=== PATIENT | female | born 1930 | race Caucasian/White ===

== ENCOUNTER 2020-05-23 11:37 | Inpatient (IN) | payer MEDICARE ==
[~2020-05-23] VITALS: Ht 162.6 cm; Wt 71.7 kg
[2020-05-23 12:07] LABS: BASOPHILS % 0.3 % (0.0-1.0); EOSINOPHILS % 0.5 % (0.0-6.0); HEMATOCRIT 34.5 % (34.2-44.1); HEMOGLOBIN 11.2 g/dL (12.0-16.0); LYMPHOCYTES # (AUTO) 0.7 (1.0-3.2); LYMPHOCYTES % 12.1 % (18.0-39.1); MEAN CORPUSCULAR HEMOGLOBIN 25.5 pg (28-32); MEAN CORPUSCULAR HGB CONC 32.5 g/dL (31-35); MEAN CORPUSCULAR VOLUME 78.4 fL (81-99); MONOCYTES # (AUTO) 0.6 (0.2-0.8); MONOCYTES % 10.1 % (4.4-11.3); NEUTROPHILS # (AUTO) 4.5 (2.1-6.9); NEUTROPHILS % 76.5 % (38.7-80.0); PLATELET COUNT 177 x10e3/uL (140-360); RED CELL DISTRIBUTION WIDTH 15.9 % (11.7-14.4)
[2020-05-23 12:17] LABS: INR 1.67; PROTHROMBIN TIME 20.5 seconds (11.9-14.5)
[2020-05-23 12:18] LABS: PARTIAL THROMBOPLASTIN TIME 39.6 seconds (23.8-35.5)
[2020-05-23 12:26] LABS: ALANINE AMINOTRANSFERASE 22 IU/L (0-55); ALBUMIN 3.6 g/dL (3.5-5.0); ALBUMIN/GLOBULIN RATIO 1.2 (0.8-2.0); ALKALINE PHOSPHATASE 77 IU/L (40-150); ANION GAP 12.7 mmol/L (8-16); BLOOD UREA NITROGEN 10 mg/dL (7-26); BUN/CREATININE RATIO 13 (6-25); CALCIUM 9.2 mg/dL (8.4-10.2); CARBON DIOXIDE 28 mmol/L (22-29); CHLORIDE 88 mmol/L (98-107); CREATINE KINASE 69 IU/L (29-168); CREATININE, SERUM 0.78 mg/dL (0.57-1.11); EST GLOMERULAR FILTRATION RATE > 60 ML/MIN (60-); GLUCOSE 121 mg/dL (74-118); MAGNESIUM 1.3 MG/DL (1.3-2.1); POTASSIUM 3.7 mmol/L (3.5-5.1); SODIUM 125 mmol/L (136-145)
[2020-05-23 12:56] LABS: COLOR,URINE YELLOW (YELLOW)
[2020-05-23 12:57] LABS: BILIRUBIN,URINE NEGATIVE (NEGATIVE); CLARITY,URINE CLEAR (CLEAR); KETONES,URINE NEGATIVE (NEGATIVE); LEUKOCYTE ESTERASE ,URINE NEGATIVE (NEGATIVE); NITRITE,URINE NEGATIVE (NEGATIVE); PROTEIN,URINE DIPSTICK NEGATIVE (NEGATIVE); URINE UROBILINOGEN 0.2 mg/dL (0.2 - 1)
--- NOTE | 2020-05-23 13:10 | NUR ---
XRAY PORTABLE TO ROOM NOW.
[2020-05-23 13:13] LABS: BACTERIA,URINE FEW /HPF; EPITHELIAL CELLS,URINE FEW /LPF; RBC,URINE 0-5 /HPF (0-5); WBC,URINE (MAN) 0-5 /HPF (0-5)
--- NOTE | 2020-05-23 13:41 | NUR ---
2ND COVID SWAB DONE TO R/O TO SEE IF WE CAN ADMIT PT HERE OR NEED TO TRANSFER. SPOKE TO MICHELE Gay STATES HE DOES UNDERSTAND THIS NEEDS TO BE DONE A 45 MIN RAPID IN HOUSE
[2020-05-23] MEDS ORDERED: FLUZONE (13:45)
[2020-05-23] MEDS ORDERED: SERTRALINE HCL25 MG PO (13:45)
[2020-05-23] MEDS ORDERED: ELIQUIS PO (13:45)
[2020-05-23] MEDS ORDERED: LISINOPRIL PO (13:45)
[2020-05-23] MEDS ORDERED: HYDRALAZINE PO (13:45)
[2020-05-23] MEDS ORDERED: TORSEMIDE10 MG PO (13:45)
[2020-05-23] MEDS ORDERED: ALENDRONATE PO (13:45)
[2020-05-23] MEDS ORDERED: POTASSIUM CHLO20 ME1 PO (13:45)
[2020-05-23] MEDS ORDERED: FUROSEMIDE INJ 10 MG/ML 4 ML VIAL IV NR (13:45)
[2020-05-23] MEDS ORDERED: FUROSEMIDE INJ 10 MG/ML 2 ML VIAL ONE (13:45)
[2020-05-23] MEDS ORDERED: CARVEDILOL PO (13:45)
--- NOTE | 2020-05-23 13:47 | NUR ---
vimal swab handed to edgar in lab.
--- NOTE | 2020-05-23 14:13 | Diagnostic Imaging Report ---
EXAMINATION: CHEST SINGLE (PORTABLE) INDICATION: Shortness of breath suspicious for congestive heart failure COMPARISON: None FINDINGS: TUBES and LINES: AICD is intact. LUNGS: Normal lung volumes. There is diffuse interstitial prominence throughout both lungs. There is also hazy opacification the bilateral lung bases, left more to right. PLEURA: There is probable small trace pleural effusion. No pneumothorax. Vertically oriented lucencies projecting over the right hemithorax likely reflect skin folds. HEART AND MEDIASTINUM: The cardiomediastinal silhouette is enlarged. There are atherosclerotic calcifications within the aorta. BONES AND SOFT TISSUES: Degenerative changes in the spine and shoulders. Soft tissues are unremarkable. UPPER ABDOMEN: No free air under the diaphragm. IMPRESSION: 1. Cardiomegaly with interstitial pulmonary edema. 2. Hazy opacification the bilateral lung bases which most likely represent atelectasis and/or developing pneumonia in the proper clinical context. 3. Probable trace left pleural effusion. Signed by: Reynaldo Tai MD on 05/23/2020 2:09 PM
--- NOTE | 2020-05-23 14:40 | Emergency Department Note ---
History of Present Illnes History of Present Illness Chief Complaint: Respiratory History of Present Illness This is a 89 year old female X 6 DAYS INCREASING SHORTNESS OF BREATH, TAMAYO, PND, ORTHOPNEA. PATIENT WITH LABORED BREATHING AND WHEEZING, PITTING EDEMA. O2 SAT 95%. 5 DAYS AGO STARTED ON TORSEMIDE. NO COUGH Historian: Patient Arrival Mode: Car Additional Treatment ANTITANK ASSAULT GUNNER: NONE User Experience Lead Required: No Onset (how long ago): day(s) (6) Location: LUNGS Quality: SOB Radiation: Reports non-radiation Severity: severe Onset quality: gradual Timing of current episode: constant Progression: worsening Chronicity: recurrent Context: Denies recent illness Relieving factors: none Exacerbating factors: none Associated symptoms: Reports denies other symptoms Past Medical/Family History Physician Review I have reviewed the patient's past medical and family history. Any updates have been documented here. Past Medical History Recent Fever: No Clinical Suspicion of Infectio: No New/Unexplained Change in Ment: No Past Medical History: Hypertension, CHF, Hyperlipedemia Past Surgical History: Hysterectomy, Pacer/AICD Social History Smoking Cessation: Never Smoker Counseling Performed: No Alcohol Use: None Any Illegal Drug Use: No TB Exposure/Symptoms: No Physically hurt or threatened: No Family History Family history of heart diseas: No Other Any Pre-Existing Lines (PICC,: No Review of Systems Review of Systems Constitutional: Reports no symptoms EENTM: Reports no symptoms Cardiovascular: Reports as per HPI, Reports edema; Denies chest pain Respiratory: Reports dyspnea, Reports dyspnea on exertion Gastrointestinal: Reports no symptoms Genitourinary: Reports no symptoms Musculoskeletal: Reports no symptoms Integumentary: Reports no symptoms Neurological: Reports no symptoms Psychological: Reports no symptoms Endocrine: Reports no symptoms Hematological/Lymphatic: Reports no symptoms Physical Exam Related Data Allergies: Uncoded Allergies: SHINGLES SHOT (Allergy, Severe, ARM SWELLING, 05/23/20) Triage Vital Signs Vital Signs Date Time Temp Pulse Resp B/P (MAP) Pulse Ox O2 Delivery O2 Flow Rate FiO2 05/23/20 11:49 97.9 108 24 146/85 95 Room Air 05/23/20 12:01 2.0 Vital signs reviewed: Yes Physical Exam CONSTITUTIONAL Constitutional: Present well-developed, Present well-nourished HENT HENT: Present normocephalic, Present atraumatic, Present oropharynx clear/moist, Present nose normal HENT L/R: Present left ext ear normal, Present right ext ear normal EYES Eyes: Reports PERRL, Reports conjunctivae normal NECK Neck: Present ROM normal PULMONARY Pulmonary: Present effort normal, Present breath sounds normal CARDIOVASCULAR Cardiovascular: Present regular rhythm, Present irregular rhythm, Present heart sounds normal, Present capillary refill normal, Present normal rate, Present murmur, Present other (BILATERAL LE EDEMA 4+ TO THIGHS, BILAT FOREARM EDEMA) GASTROINTESTINAL Abdominal: Present soft, Present nontender, Present bowel sounds normal GENITOURINARY Genitourinary: Present exam deferred SKIN Skin: Present warm, Present dry MUSCULOSKELETAL Musculoskeletal: Present ROM normal NEUROLOGICAL Neurological: Present alert, Present oriented x 3, Present no gross motor or sensory deficits PSYCHOLOGICAL Psychological: Present mood/affect normal, Present judgement normal Results Laboratory Result Diagram: 05/23/20 1109 05/23/20 1109 Laboratory Laboratory Tests Test 05/23/20 13:20 05/23/20 12:20 05/23/20 11:09 Urine Color Yellow (YELLOW) Urine Clarity Clear (CLEAR) Urine pH 7 (5 - 7) Urine Specific [place] 1.025 (1.010-1.025) Urine Protein Negative (NEGATIVE) Urine Glucose (UA) Negative (NEGATIVE) Urine Ketones Negative (NEGATIVE) Urine Blood Trace (NEGATIVE) Urine Nitrite Negative (NEGATIVE) Urine Bilirubin Negative (NEGATIVE) Urine Urobilinogen 0.2 mg/dL (0.2 - 1) Urine Leukocyte Esterase Negative (NEGATIVE) Urine RBC 0-5 /HPF (0-5) Urine WBC 0-5 /HPF (0-5) Urine Epithelial Cells Few /LPF (NONE) Urine Bacteria Few /HPF (NONE) White Blood Count 5.87 x10e3/uL (4.8-10.8) Red Blood Count 4.40 x10e6/uL (3.6-5.1) Hemoglobin 11.2 g/dL (12.0-16.0) Hematocrit 34.5 % (34.2-44.1) Mean Corpuscular Volume 78.4 fL (81-99) Mean Corpuscular Hemoglobin 25.5 pg (28-32) Mean Corpuscular Hemoglobin Concent 32.5 g/dL (31-35) Red Cell Distribution Width 15.9 % (11.7-14.4) Platelet Count 177 x10e3/uL (140-360) Neutrophils (%) (Auto) 76.5 % (38.7-80.0) Lymphocytes (%) (Auto) 12.1 % (18.0-39.1) Monocytes (%) (Auto) 10.1 % (4.4-11.3) Eosinophils (%) (Auto) 0.5 % (0.0-6.0) Basophils (%) (Auto) 0.3 % (0.0-1.0) Neutrophils # (Auto) 4.5 (2.1-6.9) Lymphocytes # (Auto) 0.7 (1.0-3.2) Monocytes # (Auto) 0.6 (0.2-0.8) Eosinophils # (Auto) 0.0 (0.0-0.4) Basophils # (Auto) 0.0 (0.0-0.1) Absolute Immature Granulocyte (auto 0.03 x10e3/uL (0-0.1) Prothrombin Time 20.5 seconds (11.9-14.5) Prothromb Time International Ratio 1.67 Activated Partial Thromboplast Time 39.6 seconds (23.8-35.5) Sodium Level 125 mmol/L (136-145) Potassium Level 3.7 mmol/L (3.5-5.1) Chloride Level 88 mmol/L (98-107) Carbon Dioxide Level 28 mmol/L (22-29) Anion Gap 12.7 mmol/L (8-16) Blood Urea Nitrogen 10 mg/dL (7-26) Creatinine 0.78 mg/dL (0.57-1.11) Estimat Glomerular Filtration Rate > 60 ML/MIN (60-) BUN/Creatinine Ratio 13 (6-25) Glucose Level 121 mg/dL (74-118) Calcium Level 9.2 mg/dL (8.4-10.2) Magnesium Level 1.3 MG/DL (1.3-2.1) Total Bilirubin 1.2 mg/dL (0.2-1.2) Aspartate Amino Transf (AST/SGOT) 37 IU/L (5-34) Alanine Aminotransferase (ALT/SGPT) 22 IU/L (0-55) Alkaline Phosphatase 77 IU/L (40-150) Creatine Kinase 69 IU/L (29-168) Creatine Kinase MB 3.20 ng/mL (0-5.0) Troponin I 0.034 ng/mL (0-0.300) B-Type Natriuretic Peptide 751.8 pg/mL (0-100) Total Protein 6.6 g/dL (6.5-8.1) Albumin 3.6 g/dL (3.5-5.0) Globulin 3.0 g/dL (2.3-3.5) Albumin/Globulin Ratio 1.2 (0.8-2.0) Lab results reviewed: Yes Imaging Imaging results reviewed: Yes Procedures 12 Lead ECG Interpretation ECG Interpretation : ECG: ECG 1 User Experience Lead: Interpreted by ED physician Date: May 23, 2020 Time: 12:10 Rhythm: atrial fibrillation Ectopy: infrequent PVC's Rate: normal BPM: 71 QRS axis: right Conduction: right bundle branch block ST segments normal: Yes T wave inversion: III, aVR, V1, V2, V3, V4, V5 T waves flattening: V6 Clinical Impression: abnormal ECG Assessment & Plan Medical Decision Making MDM SOB, CLINICALLY LOOKS LIKE CHF - CHECK CBC, CHEM, ECG, CARDIACS, BNP, CXR, BLOOD CX'S, COVID SWAB - EVAL FOR CHF, RENAL INSUFF, PNEUMONIA, COVID19, ELECTROLYTE ABNL Reassessment Reassessment LASIX GIVEN IN ER FOR CHF EXAC, ADMIT TO DR BARNHART ([facility] PT) Assessment & Plan Final Impression: (1) CHF exacerbation (2) Hyponatremia Depart Disposition: ADMITTED Last Vital Signs Date Time Temp Pulse Resp B/P (MAP) Pulse Ox O2 Delivery O2 Flow Rate FiO2 05/23/20 13:10 76 26 172/80 97 Nasal Cannula 2.0 05/23/20 11:49 97.9 Home Meds Reported Medications [Alendronate] No Conflict Check 05/23/20 [Fluzone] No Conflict Check 05/23/20 [Lisinopril] No Conflict Check 05/23/20 [Hydralazine] No Conflict Check 05/23/20 [Carvedilol] No Conflict Check 05/23/20 Potassium Chloride (POTASSIUM CHLORIDE) 20 Meq Tab.er.prt 05/23/20 Sertraline Hcl (SERTRALINE HCL) 25 Mg Tablet 05/23/20 [Eliquis] No Conflict Check 05/23/20 Torsemide (TORSEMIDE) 10 Mg Tablet 05/23/20 ALLYSON RUBI MD May 23, 2020 14:40
[2020-05-23] MEDS ORDERED: ATORVASTATIN CA20 MG PO (15:17)
[2020-05-23] MEDS ORDERED: CLONIDINE HCL0.1 MG PO (15:17)
[2020-05-23 16:19] VITALS: BP 156/85
[2020-05-23 16:25] VITALS: BP 156/85
[2020-05-23 16:35] VITALS: BP 156/85
[2020-05-23 16:36] VITALS: BP 156/85
[2020-05-23] MEDS: FUROSEMIDE INJ 10 MG/ML 4 ML VIAL IV SCH (17:00)
[2020-05-23] MEDS: CLONIDINE HCL 0.1 MG TAB PO SCH (17:50)
[2020-05-23 19:18] LABS: CREATINE KINASE MB 3.2 ng/mL (0-5.0)
[2020-05-23] MEDS ORDERED: ALBUTEROL/IPRATROPIUM 3 ML NEB NEB PRN (19:45)
[2020-05-23 20:12] VITALS: BP 126/53
--- NOTE | 2020-05-23 20:24 | History and Physical ---
PRIMARY CARE PHYSICIAN: Dr. Lynch at [facility]. CHIEF COMPLAINT: Shortness of breath and dry cough with lower extremity edema. HISTORY OF PRESENT ILLNESS: This is an 89-year-old female with past medical history of high blood pressure, high cholesterol, systolic CHF, and atrial fibrillation, presented to the ER with complaints of shortness of breath and dry cough. She reports the symptoms initially started six weeks ago. She went and saw her PCP who increased her furosemide five days ago, but her bilateral lower extremity edema and shortness of breath continued to worsen. She denies any fever, chills, chest pain, palpitations, abdominal pain, dysuria, or hematuria. She reports has difficulty with her ADLs and has not had good sleep in a few days. In the ER, she had chest x-ray showed cardiomegaly with interstitial pulmonary edema, hazy opacifications at the bilateral lung bases, which most likely represent atelectasis or developing of pneumonia. She was given IV Lasix and will be admitted for further management of her CHF. PAST MEDICAL HISTORY: 1. Hypertension. 2. High cholesterol. 3. Systolic CHF. 4. Paroxysmal atrial fibrillation. PAST SURGICAL HISTORY: 1. Hysterectomy. 2. Tonsillectomy. 3. Pacemaker placement. FAMILY MEDICAL HISTORY: She reports mother had cancer and father had Parkinson disease. SOCIAL HISTORY: She denies any tobacco, alcohol, or illicit drug use. She lives with her daughter in the [facility]. ALLERGIES: TO SHINGLES SHOT. REVIEW OF SYSTEMS: 10 systems reviewed and negative except as reported in HPI. PHYSICAL EXAMINATION: VITAL SIGNS: Temperature 97.9, pulse is 57, respirations 22, blood pressure 156/85, pulse ox is 97% on 2 L of nasal cannula. GENERAL: No acute distress. HEENT: Normocephalic, atraumatic. NECK: Supple. LUNGS: With decreased breath sounds. CARDIOVASCULAR: Irregular rate and rhythm. GI: Soft and nontender. NEUROLOGIC: Alert, awake, and oriented x3. MUSCULOSKELETAL: Moves all extremities. +2 to 3 edema in the lower extremities. SKIN: Dry. PSYCH: Calm. : Gaspar in place for strict I's and O's. LABORATORY DATA: WBC 5.87, hemoglobin 11.2, hematocrit 34.5, and platelet 177. Sodium 125, potassium 3.7, BUN 10, creatinine 0.78, estimated GFR is greater than 60, glucose 121, calcium 9.2, magnesium 1.3, AST 37, and ALT 22. Troponin I 0.004. BNP 751.8. Albumin 3.6, globulin 3.0, PT 20.5, INR 1.67, and APTT 39.6. UA is negative. Coronavirus PCR is nondetected. Chest x-ray shows cardiomegaly with interstitial pulmonary edema. Hazy opacification likely due to atelectasis or developing of pneumonia. Probable trace pleural effusion. IMPRESSION: 1. Acute systolic congestive heart failure with exacerbation. BNP is 751. Chest x-ray noted. She is with dyspnea and bilateral lower extremity edema. We will continue with IV Lasix. Gaspar is in place for accurate I and O. We will check echo and resume home medications. 2. Hypertension. We will continue on clonidine, lisinopril, and Coreg. 3. High cholesterol. Continue statin. 4. Atrial fibrillation. Rate is controlled on beta blockers. We will continue Eliquis for cerebrovascular accident prophylaxis. 5. Hyponatremia. We will give sodium chloride tabs and recheck labs in a.m. She has no dizziness or change in mental status. 6. Gastrointestinal and deep venous thrombosis prophylaxis. PPI and on Eliquis. PLAN: To continue aggressive diuretics with IV Lasix. We will give nebs and O2 via nasal cannula. We will check echo and labs in a.m. Dictated by WANDA Chand Jacques Garcia MD MY/MODL /[id number]
[2020-05-23] MEDS: ATORVASTATIN 20 MG TAB PO SCH (20:56)
[2020-05-23] MEDS: CEFTRIAXONE SOD 1 GM/NS 50 ML 50 ML IV SCH (20:56)
[2020-05-23] MEDS: SODIUM CHLORIDE 1 GM TAB PO SCH (21:03)
[2020-05-23] MEDS ORDERED: SODIUM CHLORIDE 0.9% 250ML 250 ML ONE (21:16)
[2020-05-23 21:45] VITALS: BP 126/53
[2020-05-24] VITALS (8 sets, daily range): BP systolic 105–159; BP diastolic 50–71
[2020-05-24 07:02] LABS: BASOPHILS % 0.2 % (0.0-1.0); EOSINOPHILS % 0.4 % (0.0-6.0); HEMATOCRIT 30.7 % (34.2-44.1); LYMPHOCYTES # (AUTO) 0.8 (1.0-3.2); LYMPHOCYTES % 14.5 % (18.0-39.1); MEAN CORPUSCULAR HEMOGLOBIN 25.8 pg (28-32); MEAN CORPUSCULAR HGB CONC 32.6 g/dL (31-35); MEAN CORPUSCULAR VOLUME 79.1 fL (81-99); MONOCYTES # (AUTO) 0.5 (0.2-0.8); MONOCYTES % 10.2 % (4.4-11.3); NEUTROPHILS # (AUTO) 3.9 (2.1-6.9); NEUTROPHILS % 74.3 % (38.7-80.0); PLATELET COUNT 151 x10e3/uL (140-360); RED BLOOD COUNT 3.88 x10e6/uL (3.6-5.1)
[2020-05-24 07:27] LABS: ALANINE AMINOTRANSFERASE 18 IU/L (0-55); ALBUMIN/GLOBULIN RATIO 1.2 (0.8-2.0); ALKALINE PHOSPHATASE 63 IU/L (40-150); ANION GAP 11.3 mmol/L (8-16); BLOOD UREA NITROGEN 11 mg/dL (7-26); BUN/CREATININE RATIO 14 (6-25); CALCIUM 8.4 mg/dL (8.4-10.2); CARBON DIOXIDE 31 mmol/L (22-29); CHLORIDE 91 mmol/L (98-107); CREATININE, SERUM 0.79 mg/dL (0.57-1.11); EST GLOMERULAR FILTRATION RATE > 60 ML/MIN (60-); GLUCOSE 98 mg/dL (74-118); POTASSIUM 3.3 mmol/L (3.5-5.1); SODIUM 130 mmol/L (136-145)
[2020-05-24 07:46] LABS: CREATINE KINASE MB 1.9 ng/mL (0-5.0)
[2020-05-24] MEDS: FUROSEMIDE INJ 10 MG/ML 4 ML VIAL IV SCH ×3 (09:11→21:31)
[2020-05-24] MEDS: CLONIDINE HCL 0.1 MG TAB PO SCH ×2 (09:11→17:15)
[2020-05-24] MEDS: APIXABAN 5 MG TABLET PO SCH ×2 (09:11→17:15)
[2020-05-24] MEDS: CARVEDILOL 12.5 MG TAB PO SCH ×2 (09:11→17:15)
[2020-05-24] MEDS: SERTRALINE HCL 50 MG TAB PO SCH (09:12)
[2020-05-24] MEDS: LISINOPRIL 20 MG TAB PO SCH ×2 (09:12→17:15)
[2020-05-24] MEDS: SODIUM CHLORIDE 1 GM TAB PO SCH (09:12)
[2020-05-24] MEDS: POTASSIUM CHLORIDE 20 MEQ TAB CR PO SCH (09:12)
[2020-05-24] MEDS: ALBUTEROL/IPRATROPIUM 3 ML NEB NEB SCH ×4 (12:45→22:59)
--- NOTE | 2020-05-24 14:17 | Diagnostic Imaging Report ---
EXAMINATION: CHEST SINGLE (PORTABLE) INDICATION: Shortness of breath. COMPARISON: None FINDINGS: TUBES and LINES: The pacemaker is intact. LUNGS: Normal lung volumes. There is diffuse interstitial prominence particularly lung bases. There is also hazy opacification the bilateral lung bases. No consolidations. PLEURA: There is probable trace left pleural effusion. No pneumothorax. HEART AND MEDIASTINUM: The cardiomediastinal silhouette is enlarged. There are atherosclerotic calcifications within the aorta. BONES AND SOFT TISSUES: Degenerative changes in the spine and shoulders. Soft tissues are unremarkable. UPPER ABDOMEN: No free air under the diaphragm. IMPRESSION: 1. Cardiomegaly with interstitial pulmonary edema. 2. Hazy opacification the bilateral lung bases represents atelectasis and/or developing multifocal pneumonia in the proper clinical context. Signed by: Reynaldo Tai MD on 05/24/2020 2:14 PM
--- NOTE | 2020-05-24 15:12 | Progress Note ---
DATE: 05/24/2020 CHIEF COMPLAINT: Shortness of breath and bilateral lower extremities edema. SUBJECTIVE: The patient reports shortness of breath and bilateral lower extremities edema is improving. She is noted to have light hematuria due to Gaspar. We will continue to monitor and fix her Gaspar in place. She denies any chest pain, fever, and shortness of breath is improving some. OBJECTIVE: VITAL SIGNS: Temperature 98.1, pulse is 59, respirations 18, blood pressure 111/50, pulse ox is 92% on 2 L of nasal cannula. GENERAL: Fatigued. HEENT: Normocephalic and atraumatic. NECK: Supple. LUNGS: Decreased breath sounds. CARDIOVASCULAR: Regular rate and rhythm. ICD in place. GI: Soft and nontender. NEUROLOGIC: Alert, awake, and oriented x3. MUSCULOSKELETAL: Moves all extremities. 2+ edema of bilateral lower extremities. SKIN: Dry. PSYCH: Calm. : Gaspar in place. LABORATORY DATA: WBC 5.19, hemoglobin 10, hematocrit 30.7, platelets 151. Sodium 130, potassium 3.3, CO2 31, BUN 11, creatinine 0.79, estimated GFR is greater than 60. Magnesium 1.3. Coronavirus PCR is negative. Urine culture is pending. IMPRESSION AND PLAN: 1. Acute systolic congestive heart failure with exacerbation. BNP is 751. Continue with aggressive diuretics with Lasix IV. We will repeat chest x-ray today. Pending echo. 2. Hypertension. Stable on clonidine, lisinopril, and Coreg. 3. High cholesterol. On statin. 4. Paroxysmal atrial fibrillation. Rate controlled on beta-blockers. Continue Eliquis for cerebrovascular accident prophylaxis. 5. Hyponatremia. Sodium is 130 today. Continue with sodium salt daily. 6. GI and DVT prophylaxis. PPI and Eliquis. PLAN: Continue aggressive diuretics, pending echo and labs in a.m. We will have physical therapy to evaluate and treat. Dictated by WANDA Chand Jacques Garcia MD MY/MODL /[id number] RUBIO
[2020-05-24] MEDS: ATORVASTATIN 20 MG TAB PO SCH (21:31)
[2020-05-24] MEDS: CEFTRIAXONE SOD 1 GM/NS 50 ML 50 ML IV SCH (21:31)
[2020-05-25] VITALS (7 sets, daily range): BP systolic 123–147; BP diastolic 53–76
[2020-05-25] MEDS: ALBUTEROL/IPRATROPIUM 3 ML NEB NEB SCH ×5 (04:04→19:00)
[2020-05-25 06:12] LABS: BASOPHILS % 0.5 % (0.0-1.0); EOSINOPHILS % 0.3 % (0.0-6.0); HEMATOCRIT 30.7 % (34.2-44.1); HEMOGLOBIN 10.2 g/dL (12.0-16.0); LYMPHOCYTES # (AUTO) 0.6 (1.0-3.2); LYMPHOCYTES % 9.6 % (18.0-39.1); MEAN CORPUSCULAR HEMOGLOBIN 26.8 pg (28-32); MEAN CORPUSCULAR HGB CONC 33.2 g/dL (31-35); MEAN CORPUSCULAR VOLUME 80.8 fL (81-99); MONOCYTES # (AUTO) 0.7 (0.2-0.8); MONOCYTES % 10.4 % (4.4-11.3); NEUTROPHILS # (AUTO) 5.2 (2.1-6.9); NEUTROPHILS % 78.9 % (38.7-80.0); PLATELET COUNT 146 x10e3/uL (140-360); RED CELL DISTRIBUTION WIDTH 15.9 % (11.7-14.4)
[2020-05-25 06:28] LABS: ANION GAP 9.3 mmol/L (8-16); BLOOD UREA NITROGEN 11 mg/dL (7-26); BUN/CREATININE RATIO 14 (6-25); CALCIUM 8.2 mg/dL (8.4-10.2); CARBON DIOXIDE 34 mmol/L (22-29); CHLORIDE 91 mmol/L (98-107); CREATININE, SERUM 0.77 mg/dL (0.57-1.11); EST GLOMERULAR FILTRATION RATE > 60 ML/MIN (60-); GLUCOSE 102 mg/dL (74-118); POTASSIUM 3.3 mmol/L (3.5-5.1); SODIUM 131 mmol/L (136-145)
[2020-05-25] MEDS: SODIUM CHLORIDE 1 GM TAB PO SCH (08:46)
[2020-05-25] MEDS: CARVEDILOL 12.5 MG TAB PO SCH ×2 (08:46→17:11)
[2020-05-25] MEDS: POTASSIUM CHLORIDE 20 MEQ TAB CR PO SCH (08:46)
[2020-05-25] MEDS: SERTRALINE HCL 50 MG TAB PO SCH (08:46)
[2020-05-25] MEDS: CLONIDINE HCL 0.1 MG TAB PO SCH ×2 (08:46→17:11)
[2020-05-25] MEDS: LISINOPRIL 20 MG TAB PO SCH ×2 (08:46→17:11)
[2020-05-25] MEDS: APIXABAN 5 MG TABLET PO SCH ×2 (08:46→17:11)
[2020-05-25] MEDS ORDERED: POTASSIUM CHLORIDE 10MEQ EA PO ONE (13:45)
[2020-05-25] MEDS: FUROSEMIDE INJ 10 MG/ML 4 ML VIAL IV SCH ×2 (13:56→21:07)
--- NOTE | 2020-05-25 16:28 | Progress Note ---
DATE: 05/25/2020 CHIEF COMPLAINT: Shortness of breath and bilateral lower extremity edema. SUBJECTIVE: The patient is seen, resting in bed with no acute distress. Shortness of breath and edema improving some, she is on nasal cannula 2 L. She denies any chest pain, fever, chills, nausea, or vomiting. Light hematuria noted in Gaspar. We will discontinue per our discussion. PHYSICAL EXAMINATION: VITAL SIGNS: Temperature 98.3, pulse is 69, respirations 19, blood pressure 129/73, pulse ox is 97% on 2 L of nasal cannula. GENERAL: No acute distress. HEENT: Normocephalic, atraumatic. NECK: Supple. LUNGS: Decreased breath sounds. CARDIOVASCULAR: Regular rate and rhythm. ICD in place. GI: Soft and nondistended. NEUROLOGIC: Alert, awake, oriented x3. MUSCULOSKELETAL: Moves all extremities, 2+ edema in the lower extremities. SKIN: Dry. PSYCH: Calm. LABORATORY DATA: WBC 6.57, hemoglobin 10.2, hematocrit 30.7, platelet 146. Sodium 131, potassium 3.3, BUN 11, creatinine 0.77, estimated GFR is greater than 60. COVID PCR is not detected. Urine culture is negative so far. Chest x-ray is cardiomegaly with interstitial pulmonary edema. Hazy opacification to the bilateral lung bases represent atelectasis and/or developing multifocal pneumonia in appropriate clinical context. IMPRESSION: 1. Acute systolic congestive heart failure with exacerbation. Continue Lasix IV t.i.d. Repeat chest x-ray noted with pulmonary edema still. Echocardiogram done, awaiting results. Edema is improving. 2. Hypertension. Stable on clonidine, lisinopril, and Coreg. 3. High cholesterol. On statin. 4. Paroxysmal atrial fibrillation. Rate controlled on beta blockers. We will continue on Eliquis for cerebrovascular accident prophylaxis. 5. Hyponatremia. Seems to be chronic. Sodium is 131 today. We will continue on sodium tabs daily. 6. GI and DVT prophylaxis. PPI and Eliquis. 7. Hematuria. Hemoglobin is stable, so we will continue on Eliquis and discontinue Gaspar. PLAN: To continue with aggressive diuretics and physical therapy. The case Management is consulted for home health arrangements. Dictated by WANDA Chand Yiching MD RODERICK Chung/LEONIE /[id number]
--- NOTE | 2020-05-25 17:11 | NUR ---
BOUCHRA [facility]ons [facility], patient due to void , resting up in bed, alert with no distress
--- NOTE | 2020-05-25 18:16 | NUR ---
Nutrition Screen Note RD Recommendation for Physician: -Recommend to continue cardiac diet Plan of Care: RD following, monitoring for tolerance and adequacy Nutrition reason for involvement: Diagnosis - CHF Primary Diagnose(s): CHF exacerbation and hyponatremia PMH: Hypertension, High cholesterol, Systolic CHF, Paroxysmal atrial fibrillation. Ht: 64 in Wt:158 lb BMI: 27.1 kg/m2 IBW:[address] Assessment: (05/25/20) Chart reviewed. Labs and meds reviewed. Pt is an 89 year old female admitted with CHF exacerbation and hyponatremia. Pt reports she is eating most of her meals. 100% meal intake recorded in chart. Pt mentioned her dry weight without fluid is 142 lbs. No N/V/D/C or chewing/swallowing issues. Pt declined the need for diet education. Will continue to monitor. Current Diet: cardiac Malnutrition Evaluation (05/25/20) The patient does not meet criteria for a specified degree of malnutrition at this time. Will re-evaluate at follow-up as appropriate. Diet Education Needs Assessment: pt declind the need for diet education Nutrition Care Level: low Signed: Marissa Velarde, RD, LD
--- NOTE | 2020-05-25 19:02 | NUR ---
Received the patient in report.lyeing in the bed.no resp.distress noted.no pain voiced.phone and call light within reach.instructed to call for assistance as needed. due to void.on diaper.
[2020-05-25] MEDS: CEFTRIAXONE SOD 1 GM/NS 50 ML 50 ML IV SCH (20:44)
[2020-05-25] MEDS: ATORVASTATIN 20 MG TAB PO SCH (21:06)
--- NOTE | 2020-05-25 22:10 | NUR ---
VOIDED.STABLE CONDITION.
[2020-05-26] VITALS (8 sets, daily range): BP systolic 107–141; BP diastolic 52–72
[2020-05-26] MEDS: ALBUTEROL/IPRATROPIUM 3 ML NEB NEB SCH ×8 (00:32→23:40)
[2020-05-26 05:40] LABS: BASOPHILS % 0.3 % (0.0-1.0); EOSINOPHILS % 0.6 % (0.0-6.0); HEMOGLOBIN 9.9 g/dL (12.0-16.0); LYMPHOCYTES # (AUTO) 0.8 (1.0-3.2); LYMPHOCYTES % 11.7 % (18.0-39.1); MEAN CORPUSCULAR HEMOGLOBIN 26.8 pg (28-32); MEAN CORPUSCULAR VOLUME 81.1 fL (81-99); MONOCYTES # (AUTO) 0.7 (0.2-0.8); MONOCYTES % 11.3 % (4.4-11.3); NEUTROPHILS % 75.6 % (38.7-80.0); PLATELET COUNT 148 x10e3/uL (140-360); RED CELL DISTRIBUTION WIDTH 15.8 % (11.7-14.4)
[2020-05-26 06:23] LABS: ANION GAP 10.2 mmol/L (8-16); BLOOD UREA NITROGEN 13 mg/dL (7-26); BUN/CREATININE RATIO 18 (6-25); CALCIUM 8.2 mg/dL (8.4-10.2); CARBON DIOXIDE 36 mmol/L (22-29); CHLORIDE 89 mmol/L (98-107); CREATININE, SERUM 0.71 mg/dL (0.57-1.11); EST GLOMERULAR FILTRATION RATE > 60 ML/MIN (60-); GLUCOSE 107 mg/dL (74-118); POTASSIUM 3.2 mmol/L (3.5-5.1); SODIUM 132 mmol/L (136-145)
[2020-05-26] MEDS: FUROSEMIDE INJ 10 MG/ML 4 ML VIAL IV SCH ×3 (06:28→22:20)
--- NOTE | 2020-05-26 07:20 | NUR ---
Bed side shift report given to oncoming Rn.stable condition.
[2020-05-26] MEDS: LISINOPRIL 20 MG TAB PO SCH ×2 (09:28→17:18)
[2020-05-26] MEDS: SODIUM CHLORIDE 1 GM TAB PO SCH (09:28)
[2020-05-26] MEDS: SERTRALINE HCL 50 MG TAB PO SCH (09:28)
[2020-05-26] MEDS: APIXABAN 5 MG TABLET PO SCH (09:29)
[2020-05-26] MEDS: CLONIDINE HCL 0.1 MG TAB PO SCH ×2 (09:29→15:05)
[2020-05-26] MEDS: POTASSIUM CHLORIDE 20 MEQ TAB CR PO SCH (09:29)
[2020-05-26] MEDS: CARVEDILOL 12.5 MG TAB PO SCH ×2 (09:30→17:17)
--- NOTE | 2020-05-26 09:53 | NUR ---
pt has significant hematuria and is passing blood clots. notified Karen Edouard NP
--- NOTE | 2020-05-26 12:11 | NUR ---
Received call from pt's daughter Rosangela [phone] regarding home health. States [facility], [facility], and [facility]. CM reached out to Jessica Patricia CM and got list of in network companies. None of the three are in network. Message left for Rosangela to call back to discuss other options.
[2020-05-26] MEDS ORDERED: POTASSIUM CHLORIDE 10MEQ EA PO ONE (12:30)
--- NOTE | 2020-05-26 12:57 | Progress Note ---
DATE: 05/26/2020 BUILDING MANAGER: Dr. Resendez, Urology. SUBJECTIVE: The patient seen sitting up in a chair. Reports has walked more distance today with decreased shortness of breath and edema. Currently on 2 L of nasal cannula, saturating above 95%. She denies any chest pain, fever, chills, nausea, or vomiting. Reported hematuria with clots. Gaspar has been discontinued yesterday. PHYSICAL EXAMINATION: VITAL SIGNS: Temperature 98.1, pulse is 67, respirations 17, blood pressure 116/52, and pulse ox is 97% on nasal cannula. GENERAL: No acute distress. HEENT: Normocephalic and atraumatic. NECK: Supple. LUNGS: Decreased breath sounds. CARDIOVASCULAR: Regular rate and rhythm. ICD in place. GI: Soft and nontender. NEUROLOGIC: Alert, awake, and oriented x3. MUSCULOSKELETAL: Moves all extremities. 1+ edema in the lower extremities. SKIN: Dry. PSYCH: Calm. LABORATORY DATA: WBC 6.56, hemoglobin 9.9, hematocrit 30.0, and platelet 148. Sodium 132, potassium 3.2, CO2 36, creatinine 0.71, BUN is 13, and calcium 8.2. IMPRESSION: 1. Acute systolic congestive heart failure with exacerbation. Continue with IV Lasix t.i.d. Pending echocardiogram results. Shortness of breath and edema is improving. 2. Hematuria. Hemoglobin is 9.9 today. We will hold Eliquis due to hematuria and Urology has been consulted. 3. Hypertension, stable on clonidine, lisinopril, and Coreg. 4. High cholesterol, on statin. 5. Paroxysmal atrial fibrillation, rate controlled on beta blockers. We will hold Eliquis for cerebrovascular accident prophylaxis due to hematuria. 6. Hyponatremia, likely chronic, improving, today is 132. We will continue with sodium tablets daily. 7. Hypokalemia, likely due to aggressive diuretics. We will replace and recheck. 8. Gastrointestinal and deep venous thrombosis prophylaxis. PPI and Eliquis held due to hematuria. PLAN: To continue with diuretics and physical therapy. Urology has been consulted for hematuria. We will check H and H and transfuse if hemoglobin is less than 7. Dictated by WANDA Chand Jacques Garcia MD MY/MODL /[id number]
--- NOTE | 2020-05-26 13:38 | NUR ---
Received call back from daughter Rosangela Paredes. Discussed a few in network hh companies - [facility], [facility], [facility], [facility]. She states she does not have a preference for which company we use. CM will see who can provide service at [facility] and send referral and let daughter know which company. AYDIN spoke with Andrei with [facility]. States they should be able to see pt at her facility. Order and clinical sent.
[2020-05-26 13:58] LABS: HEMATOCRIT 31.3 % (34.2-44.1)
--- NOTE | 2020-05-26 15:22 | NUR ---
Per Andrei with [facility], they are able to accept pt. CM left message for pt's daughter Rosangela w/ [facility]'s contact information.
--- NOTE | 2020-05-26 19:20 | NUR ---
Bedside rounds completed with morning nurse. Pt alert and oriented to name, lying in bed HOB 30 degrees. Denies pain at this time. O2 @ 2L via NC, sat 97%. Call light within reach. Bed alarm on.
[2020-05-26] MEDS: ATORVASTATIN 20 MG TAB PO SCH (20:30)
[2020-05-26] MEDS: CEFTRIAXONE SOD 1 GM/NS 50 ML 50 ML IV SCH (20:30)
[2020-05-26] MEDS ORDERED: MAGNESIUM SULF 1GRAM/DEXTROSE 100 ML IV ONE (21:30)
[2020-05-27] VITALS (9 sets, daily range): BP systolic 119–148; BP diastolic 48–64
[2020-05-27] MEDS: ALBUTEROL/IPRATROPIUM 3 ML NEB NEB SCH ×6 (05:29→23:45)
[2020-05-27] MEDS: FUROSEMIDE INJ 10 MG/ML 4 ML VIAL IV SCH ×3 (06:00→21:39)
[2020-05-27 06:01] LABS: BASOPHILS % 0.2 % (0.0-1.0); EOSINOPHILS # (AUTO) 0.1 (0.0-0.4); EOSINOPHILS % 1.8 % (0.0-6.0); HEMATOCRIT 29.2 % (34.2-44.1); HEMOGLOBIN 9.4 g/dL (12.0-16.0); LYMPHOCYTES # (AUTO) 0.7 (1.0-3.2); LYMPHOCYTES % 12.2 % (18.0-39.1); MEAN CORPUSCULAR HEMOGLOBIN 26.1 pg (28-32); MEAN CORPUSCULAR HGB CONC 32.2 g/dL (31-35); MEAN CORPUSCULAR VOLUME 81.1 fL (81-99); MONOCYTES # (AUTO) 0.6 (0.2-0.8); MONOCYTES % 9.7 % (4.4-11.3); NEUTROPHILS # (AUTO) 4.5 (2.1-6.9); NEUTROPHILS % 75.6 % (38.7-80.0); PLATELET COUNT 149 x10e3/uL (140-360); RED CELL DISTRIBUTION WIDTH 15.7 % (11.7-14.4)
[2020-05-27 06:21] LABS: ANION GAP 9.3 mmol/L (8-16); BLOOD UREA NITROGEN 14 mg/dL (7-26); BUN/CREATININE RATIO 20 (6-25); CALCIUM 8.2 mg/dL (8.4-10.2); CARBON DIOXIDE 37 mmol/L (22-29); CHLORIDE 89 mmol/L (98-107); CREATININE, SERUM 0.69 mg/dL (0.57-1.11); EST GLOMERULAR FILTRATION RATE > 60 ML/MIN (60-); GLUCOSE 105 mg/dL (74-118); POTASSIUM 3.3 mmol/L (3.5-5.1); SODIUM 132 mmol/L (136-145)
[2020-05-27] MEDS: CARVEDILOL 12.5 MG TAB PO SCH ×2 (09:27→17:21)
[2020-05-27] MEDS: POTASSIUM CHLORIDE 20 MEQ TAB CR PO SCH (09:28)
[2020-05-27] MEDS: LISINOPRIL 20 MG TAB PO SCH ×2 (09:29→17:22)
[2020-05-27] MEDS: SODIUM CHLORIDE 1 GM TAB PO SCH (09:29)
[2020-05-27] MEDS: SERTRALINE HCL 50 MG TAB PO SCH (09:30)
[2020-05-27] MEDS ORDERED: POTASSIUM CHLORIDE 10MEQ EA PO ONE (15:45)
--- NOTE | 2020-05-27 16:09 | Progress Note ---
DATE: 05/27/2020 [employer] OPERATOR: Dr. Resendez, Urology. SUBJECTIVE: The patient resting in bed with no acute distress. She is on 2 L nasal cannula, shortness of breath and edema improved. She denies any chest pain, fever, chills, nausea, or vomiting. Hematuria has resolved. Currently has clear yellow urine. PHYSICAL EXAMINATION: VITAL SIGNS: Temperature 98.3, pulse is 66, respirations 18, blood pressure 119/48, and pulse ox is 97% on 2 L of nasal cannula. GENERAL: No acute distress. HEENT: Normocephalic and atraumatic. NECK: Supple. LUNGS: Decreased breath sounds. CARDIOVASCULAR: Regular rate and rhythm. ICD in place. GI: Soft and nontender. NEUROLOGIC: Alert, awake, and oriented x3. MUSCULOSKELETAL: Moves all extremities. +1 edema in the lower extremities. SKIN: Dry. PSYCH: Calm. LABORATORY DATA: WBC 5.98, hemoglobin 9.4, hematocrit 29.2, and platelet 149. Sodium 132, potassium 3.3, CO2 37, BUN 14, creatinine 0.69, and estimated GFR is greater than 60. IMPRESSION: 1. Acute diastolic congestive heart failure with exacerbation. Continue with IV Lasix. Echocardiogram with EF of 50% to 55%. Shortness of breath and edema improving. 2. Hematuria, now resolved. Hemoglobin is 9.4 today. We will continue to hold Eliquis. Discussed about risk of holding Eliquis for cerebrovascular accident prophylaxis. Urology was consulted. 3. Hypertension. Continue on Coreg, lisinopril and discontinue clonidine. 4. High cholesterol, on statin. 5. Paroxysmal atrial fibrillation, rate controlled on beta blockers. We will hold Eliquis for one more day due to hematuria. 6. Hyponatremia, likely chronic. Sodium is 133. We will continue the sodium tablets daily. 7. Hypokalemia, replaced. 8. Gastrointestinal and deep venous thrombosis prophylaxis. PPI and Eliquis held due to hematuria. PLAN: To continue Lasix t.i.d., physical therapy. We will repeat labs in a.m. and anticipate discharge back to facility tomorrow with home health. We will assess for home O2. Dictated by WANDA Chand Jacques Garcia MD MY/MODL /[id number]
--- NOTE | 2020-05-27 16:15 | Diagnostic Imaging Report ---
X-ray chest frontal view History: Congestive heart failure. Pulmonary edema Comparison: 05/23/2020 Findings: Lines and tubes: Not applicable Central airways: Unremarkable Cardiac silhouette: Cardiomegaly. A left subclavian single chamber pacer unchanged. Mediastinal silhouettes: Atherosclerotic aorta. Pleura: Small right pleural effusion. Larger left pleural effusion. No pneumothorax. Diaphragms: As above Lungs: There is prominence of the bilateral interstitial markings in a central distribution additional airspace type opacities in the right lower lung zone. There is no major change compared with the previous exam. Skeletal structures: Unremarkable Extrathoracic soft tissues: Unremarkable Impression: Possible mild interstitial and alveolar edema consistent with the clinical history. Signed by: Chalo Burgos MD on 05/27/2020 4:12 PM
[2020-05-27] MEDS: CEFTRIAXONE SOD 1 GM/NS 50 ML 50 ML IV SCH (21:00)
[2020-05-27] MEDS: ATORVASTATIN 20 MG TAB PO SCH (21:00)
[2020-05-28] VITALS: BP 117/41
[2020-05-28] MEDS: ALBUTEROL/IPRATROPIUM 3 ML NEB NEB SCH ×3 (03:40→11:00)
[2020-05-28 04:00] VITALS: BP 132/62
[2020-05-28 05:42] LABS: BASOPHILS % 0.6 % (0.0-1.0); EOSINOPHILS # (AUTO) 0.1 (0.0-0.4); EOSINOPHILS % 2.7 % (0.0-6.0); HEMOGLOBIN 9.6 g/dL (12.0-16.0); LYMPHOCYTES # (AUTO) 0.6 (1.0-3.2); LYMPHOCYTES % 13.2 % (18.0-39.1); MEAN CORPUSCULAR HEMOGLOBIN 26.2 pg (28-32); MEAN CORPUSCULAR VOLUME 81.7 fL (81-99); MONOCYTES # (AUTO) 0.5 (0.2-0.8); MONOCYTES % 10.3 % (4.4-11.3); NEUTROPHILS # (AUTO) 3.5 (2.1-6.9); NEUTROPHILS % 72.8 % (38.7-80.0); PLATELET COUNT 162 x10e3/uL (140-360); RED BLOOD COUNT 3.67 x10e6/uL (3.6-5.1); RED CELL DISTRIBUTION WIDTH 15.7 % (11.7-14.4)
[2020-05-28] MEDS: FUROSEMIDE INJ 10 MG/ML 4 ML VIAL IV SCH (06:00)
[2020-05-28 06:01] LABS: ANION GAP 9.4 mmol/L (8-16); BLOOD UREA NITROGEN 14 mg/dL (7-26); BUN/CREATININE RATIO 21 (6-25); CALCIUM 8.3 mg/dL (8.4-10.2); CARBON DIOXIDE 38 mmol/L (22-29); CHLORIDE 89 mmol/L (98-107); CREATININE, SERUM 0.68 mg/dL (0.57-1.11); EST GLOMERULAR FILTRATION RATE > 60 ML/MIN (60-); GLUCOSE 96 mg/dL (74-118); POTASSIUM 3.4 mmol/L (3.5-5.1); SODIUM 133 mmol/L (136-145)
[2020-05-28 07:50] VITALS: BP 127/55
[2020-05-28 07:59] VITALS: BP 127/55
--- NOTE | 2020-05-28 08:10 | NUR ---
PATIENT AWAKE, ALERT AND VITALS STABLE WITH NO S/S OF DISTRESS OBSERVED. PATIENT DENIES PAIN AT THIS TIME. TELEMETRY AND O2 APPLIED AT 2 L NC. PUREWICK APPLIED.BED ALARM APPLIED, CALL LIGHT WITHIN REACH.
[2020-05-28] MEDS: CARVEDILOL 12.5 MG TAB PO SCH (08:34)
[2020-05-28] MEDS: POTASSIUM CHLORIDE 20 MEQ TAB CR PO SCH (08:34)
[2020-05-28] MEDS: SERTRALINE HCL 50 MG TAB PO SCH (08:35)
[2020-05-28] MEDS: SODIUM CHLORIDE 1 GM TAB PO SCH (08:35)
[2020-05-28] MEDS: LISINOPRIL 20 MG TAB PO SCH (08:35)
--- NOTE | 2020-05-28 11:37 | NUR ---
Home O2 eval was completed. Pt desat to 87% on RA. Spoke to pt and daughter Rosangela at bedside. Pt signed choice letter for [facility]. IMM letter explained. They verbalized understanding. Copies of IMM and choice letter given to pt's daughter. Signed copies placed in chart. Oxygen referral sent to [facility]. Tre with [facility] was notified of referral and will let CM know once approved to deliver portable tank.
[2020-05-28 12:00] VITALS: BP 127/52
--- NOTE | 2020-05-28 13:21 | NUR ---
Per Tre Birch, pt is approved and CM can deliver portable tank. CM delivered portable tank to bedside. CM asked pt and daughter Rosangela to call the company when pt gets discharged so they can deliver concentrator. They verbalized understanding. TERESA Hinton was informed that oxygen has been delivered.
[2020-05-28] MEDS ORDERED: LASIX40 MG PO (14:11)
--- NOTE | 2020-05-28 14:17 | NUR ---
RESPONSE TO CALL LIGHT TO ASSIST PATIENT BACK TO BED. TWO NURSES AND PATIENT'S DAUGHTER PRESENT IN ROOM TO ASSIST PATIENT IN TRANSFERRING FROM CHAIR TO BED. WALKER WITHIN REACH AND NURSES STANDING BY PATIENT TRANSFERRED FROM CHAIR TO BED WITHOUT WALKER AND MINIMAL ASSISTANCE. PATIENT TRANSFERRED SAFELY BACK TO BED BY HERSELF.BED ALARM ON, BED IN LOW/LOCKED POSITION, CALL LIGHT AND BELONGINGS WITHIN REACH.
--- NOTE | 2020-05-28 14:29 | NUR ---
Notified Andrei Lange with [facility] that pt will be discharging today.
[2020-05-28 16:00] VITALS: BP 145/78
--- NOTE | 2020-05-28 16:50 | NUR ---
PATIENT DISCHARGED HOME WITH HOME HEALTH AND HOME O2. PATIENT OFF UNIT AT 1630 BY WHEELCHAIR ACCOMPANIED BY PCT WITH O2 APPLIED AT TWO LITERS NC.PATIENT IN STABLE CONDITION, NO S/S OF RESPIRATORY DISTRESS, IV REMOVAL, TIP INTACT. DISCHARGE INSTRUCTIONS, EDUCATIONS, AND MEDICATIONS GIVEN TO PATIENT.ALL PERSONAL ITEMS TAKEN WITH PATIENT.
--- NOTE | 2020-05-29 05:31 | Discharge Summary ---
PRIMARY CARE PHYSICIAN: Dr. Kari Barnett at [facility]. FINAL DISCHARGE DIAGNOSES: 1. Acute diastolic congestive heart failure with exacerbation. 2. Hematuria, now resolved. 3. Hypertension. 4. High cholesterol. 5. Paroxysmal atrial fibrillation. 6. Hyponatremia. 7. Hypokalemia. CONSULTANTS: Dr. Resendez with Urology. PROCEDURES: None. HISTORY: Per HPI. HOSPITAL COURSE: This is an 89-year-old female, who presented to the ER with complaints of shortness of breath and bilateral lower extremity edema due to fluid overload. She was started on aggressive IV Lasix 3 times a day. Gaspar catheter was placed for strict I and O. Echocardiogram showed EF of 50% to 55%. Chest x-ray showed pulmonary edema and hazy opacification, which may represent atelectases and/or developing pneumonia. She was started on Rocephin empirically and neb treatments. She continued to improve daily, physical therapy was consulted for ambulation. She developed hematuria, which was likely caused due to Eliquis and Gaspar catheter irritation. Gaspar catheter was removed and Eliquis stopped for a few days after discussing with the patient and family regarding risk of bleeding versus very low risk of stroke. She agreed and was held for a few days and urine cleared to clear yellow. Today, she is afebrile, shortness of breath has improved, she was assessed for home O2 and will require oxygen with exertion, saturating at 87%. Case Management was consulted and home health for physical therapy and home O2 has been arranged. We will discharge back to facility to resume care. PHYSICAL EXAMINATION: VITAL SIGNS: Temperature is 97.1, pulse is 66, respirations 19, blood pressure 127/52, pulse ox is 98% on 2 L of nasal cannula. GENERAL: No acute distress. HEENT: Normocephalic, atraumatic. NECK: Supple. LUNGS: With decreased breath sounds. CARDIOVASCULAR: Regular rate and rhythm. ICD in place. GI: Soft and nontender. NEUROLOGIC: Alert, awake, and oriented x3. MUSCULOSKELETAL: Moves all extremities. SKIN: Dry and intact. PSYCH: Calm. CONDITION AT DISCHARGE: Improved and stable. DISCHARGE MEDICATIONS: Please see medication reconciliation list. FOLLOWUP: Follow up with PCP and drapery estimator in 1 to 2 weeks. TIME SPENT: Total discharge time is 32 minutes. Dictated by WANDA Chand Princessching MD RODERICK Chung/LEONIE /[id number] cc: Dr. Kari NewmanDay[facility]
== END 2020-05-28 16:30 | disposition home health service (06) | DRG 291 ==
LOC: ER 11:47 → ERHOLD 13:40 → MED/SURG3 16:05
PROVIDERS: ADMIT Internal Medicine; ATTEND Internal Medicine
DX: I11.0 Hypertensive heart disease with heart failure (principal); I50.31 Acute diastolic (congestive) heart failure; E87.1 Hypo-osmolality and hyponatremia; J96.11 Chronic respiratory failure with hypoxia; E78.5 Hyperlipidemia, unspecified; Z95.810 Presence of automatic (implantable) cardiac defibrillator; I48.0 Paroxysmal atrial fibrillation; R31.9 Hematuria, unspecified; E87.6 Hypokalemia
CPT/HCPCS: 36415; 51700; 71045; 80048; 80053; 81001; 82550; 82553; 83735; 83880; 84484; 85014; 85018; 85025; 85610; 85730; 87086; 93005; 93306; 94640; 94760; 97139; 99285; J0696; J1940; J3475; J7050; U0002